=== PATIENT | female | born 1985 | race African-American/Black ===

== ENCOUNTER 2017-04-13 12:12 | Emergency (ER) | payer SELFPAY ==
[2017-04-13 12:45] VITALS: BP 200/150
[2017-04-13] MEDS ORDERED: Ketorolac 60 MG/2 ML SDV IM ONE (12:47)
--- NOTE | 2017-04-13 12:50 | EDM.PDOC ---
ED HPI GENERAL MEDICAL PROBLEM - General Chief Complaint: Lower Extremity Injury/Pain Stated Complaint: LT ANKLE HURTS Time Seen by Provider: 04/13/17 12:43 Source of Information: Reports: Patient History Limitations: Reports: No Limitations - History of Present Illness INITIAL COMMENTS - FREE TEXT/NARRATIVE: History of present illness: []Patient was walking and missed a step and twisted her left ankle 2 days ago. His been taking Motrin but her foot keeps swelling and pain is not subsiding. Patient had surgery on that ankle in September Review of systems: As per history of present illness and below otherwise all systems reviewed and negative. Past medical history: As per history of present illness and as reviewed below otherwise noncontributory. Surgical history: As per history of present illness and as reviewed below otherwise noncontributory. Social history: No reported history of drug or alcohol abuse. Family history: As per history of present illness and as reviewed below otherwise noncontributory. Physical exam: General: Well developed, well nourished in NAD HEENT: Atraumatic, normocephalic, pupils reactive, negative for conjunctival pallor or scleral icterus, mucous membranes moist, throat clear, neck supple, nontender, trachea midline. Lungs: Clear to auscultation, breath sounds equal bilaterally, chest nontender. Heart: S1S2, regular, negative for clicks, rubs, or JVD. Abdomen: Soft, nondistended, nontender. Negative for masses or hepatosplenomegaly. Negative for costovertebral tenderness. Pelvis: Stable nontender. Genitourinary: Deferred. Rectal: Deferred. Extremities: Atraumatic, left ankle and foot are swollen with tenderness diffusely around the ankle he has full range of motion distal capillary refill is brisk and station is intact negative for cords or calf pain. Neurovascular unremarkable. Neuro: Awake, alert, oriented. Cranial nerves II through XII unremarkable. Cerebellum unremarkable. Motor and sensory unremarkable throughout. Exam nonfocal. Diagnostics: []X-ray showing normal alignment of ankle hardware fracture Therapeutics: []Toradol IM given in the ED, patient has a boot from surgery and will wear that for the next few days. Impression: []Left ankle sprain Plan: []Ice, elevate, follow-up with PMD follow-up with primary care or orthopedics return if symptoms worsen or change Definitive disposition and diagnosis as appropriate pending reevaluation and review of above. Left Ankle Pain Score (Numeric/FACES): 9 - Related Data Allergies Allergy/AdvReac Type Severity Reaction Status Date / Time No Known Allergies Allergy Verified 04/13/17 12:31 Home Meds: Home Meds Norgestimate-Ethinyl Estradiol [Sprintec 28 Day Tablet] 1 tab PO DAILY 04/13/17 [History] Past Medical History - Past Surgical History HEENT Surgical History: Reports: Tonsillectomy Musculoskeletal Surgical History: Reports: Other (See Below) Social & Family History - Tobacco Use Smoking Status *Q: Never Smoker - Caffeine Use Caffeine Use: Reports: None - Recreational Drug Use Recreational Drug Use: No Review of Systems - Review of Systems Review Of Systems: See Below ED EXAM, GENERAL - Physical Exam Exam: See Below Course - Vital Signs Last Recorded V/S: Last Vital Signs Temp 36.4 C 04/13/17 12:32 Pulse 79 04/13/17 12:32 Resp 18 04/13/17 12:32 BP 200/150 H 04/13/17 12:32 Pulse Ox 100 04/13/17 12:32 - Orders/Labs/Meds Meds: Medications Discontinued Medications Generic Name Dose Route Start Last Admin Trade Name Freq PRN Reason Stop Dose Admin Ketorolac Tromethamine 60 mg 04/13/17 12:47 04/13/17 13:02 Toradol IM 04/13/17 12:48 60 mg ONETIME ONE Administration Departure - Departure Time of Disposition: 13:35 Disposition: Home, Self-Care 01 Condition: Good Clinical Impression: Left ankle sprain Qualifiers: Encounter type: initial encounter Involved ligament of ankle: unspecified ligament Qualified Code(s): S93.402A - Sprain of unspecified ligament of left ankle, initial encounter - Discharge Information Referrals: PCP,None [Primary Care Provider] - Forms: ED Department Discharge
--- NOTE | 2017-04-13 13:18 | CR ---
Left ankle There is been open reduction and bimalleolar fracture fixation in stable position. No abnormalities are identified post fixation. Impression: Satisfactory fracture fixation
== END 2017-04-13 13:47 | disposition home or self-care (01) ==
LOC: MW.ED 12:12
DX: S93.402A Sprain of unspecified ligament of left ankle, initial encounter (principal); Z98.890 Other specified postprocedural states; X50.1XXA Overexertion from prolonged static or awkward postures, initial encounter
CPT/HCPCS: 73610; 96372; 99283; J1885; 99284